=== PATIENT | female | born 1975 | race Caucasian/White ===

== ENCOUNTER → 2022-04-02 | Outpatient (CLI) | payer BC ==
[2022-04-02 09:06] LABS: BASO # 0.1 10*3/uL (0.0-0.1); BASO % 0.5 % (0.0-1.0); EOS # 0.4 10*3/uL (0.0-0.4); EOS % 3.7 % (1.0-4.0); HEMATOCRIT 43.9 % (37.0-47.0); LYMPH # 2.1 10*3/uL (1.3-4.4); LYMPH % 20.5 % (27.0-41.0); MEAN CELL VOLUME 85.4 fl (81.0-99.0); MEAN CORPUSCULAR HGB 27.6 pg (27.0-31.0); MEAN CORPUSCULAR HGB CONC 32.3 g/dl (33.0-37.0); MONO # 0.8 10*3/uL (0.1-1.0); MONO % 8.2 % (3.0-9.0); NEUT # 6.7 10*3/uL (2.3-7.9); NEUT % 66.7 % (47.0-73.0); PLATELET COUNT AUTOMATED 370 10*3/uL (130-400); RED BLOOD COUNT 5.14 10*6/uL (4.10-5.10); RED CELL DISTRI WIDTH 13.7 % (0-14.5); WHITE BLOOD COUNT 10.1 10*3/uL (4.8-10.8)
[2022-04-02 09:32] LABS: ALKALINE PHOSPHATASE 90 U/L (46-116); BUN 16 mg/dl (9-23); CHLORIDE 105 mmol/L (98-107); CHOLESTEROL 145 mg/dL (<200); LDL CHOLESTEROL 74 mg/dL (9-159); POTASSIUM 4.5 mmol/L (3.4-5.1); SGPT/ALT 8 U/L (10-49); THYROID STIM HORMONE (HS) 2.336 uIU/ml (0.550-4.780); TOTAL PROTEIN 6.8 gm/dL (6.0-8.0); TRIGLYCERIDES 72 mg/dl (<150)
== END | disposition home or self-care (01) ==
LOC: MAMMO 07:30 → LAB 07:56
PROVIDERS: ATTEND Nurse Practitioner Family
DX: Z12.31 Encounter for screening mammogram for malignant neoplasm of breast (principal); Z12.12 Encounter for screening for malignant neoplasm of rectum; E66.9 Obesity, unspecified; Z12.11 Encounter for screening for malignant neoplasm of colon; H92.02 Otalgia, left ear; Z13.1 Encounter for screening for diabetes mellitus; N64.9 Disorder of breast, unspecified

== ENCOUNTER → 2022-04-28 | Day surgery (SDC) | payer BC ==
[~2022-04-28] VITALS: Ht 165.1 cm; Wt 117.9 kg
[2022-04-28 07:11] VITALS: BP 134/72
[2022-04-28 08:18] VITALS: BP 96/39
[2022-04-28 08:27] VITALS: BP 105/48
[2022-04-28 08:42] VITALS: BP 115/52
[2022-04-28 09:02] VITALS: BP 100/66
== END | disposition home or self-care (01) ==
LOC: SDC 04-24 08:00
PROVIDERS: ATTEND Surgery
DX: Z12.11 Encounter for screening for malignant neoplasm of colon (principal); Z90.49 Acquired absence of other specified parts of digestive tract